=== PATIENT | female | born 1975 | race Caucasian/White ===

== ENCOUNTER 2021-06-12 16:31 | Emergency (ER) | payer SELFPAY ==
[~2021-06-12] VITALS: Ht 162.6 cm; Wt 80.0 kg
[2021-06-12 16:38] VITALS: BP 145/85
[2021-06-12] MEDS ORDERED: ABIL5 PO (16:46)
[2021-06-12] MEDS ORDERED: LEVO50TA8 PO (16:46)
[2021-06-12] MEDS ORDERED: MIRT7.5T11 PO (16:46)
== END 2021-06-12 21:55 | disposition left against medical advice (07) ==
LOC: ER 16:31
DX: R68.89 Other general symptoms and signs (principal); Z53.21 Procedure and treatment not carried out due to patient leaving prior to being seen by health care provider